=== PATIENT | male | born 1940 | race Caucasian/White ===

== ENCOUNTER → 2019-04-11 13:51 | Outpatient (BNVA) | payer MEDICARE, OTHER, SELFPAY | PROVIDERS: Family Provider Family Medicine; PCP Family Medicine; Referring Provider Family Medicine; Visit Provider Otolaryngology | DX: H90.A32 Mixed conductive and sensorineural hearing loss, unilateral, left ear with restricted hearing on the contralateral side (principal); H65.02 Acute serous otitis media, left ear; H93.19 Tinnitus, unspecified ear; H91.91 Unspecified hearing loss, right ear | CPT/HCPCS: 96372; 99214; J3301 ==

== ENCOUNTER → 2019-05-03 15:04 | Outpatient (BNVA) | payer MEDICARE, OTHER, SELFPAY | PROVIDERS: Family Provider Family Medicine; PCP Family Medicine; Visit Provider Otolaryngology | DX: H91.92 Unspecified hearing loss, left ear (principal); H65.02 Acute serous otitis media, left ear | CPT/HCPCS: 99213; 99214 ==

== ENCOUNTER 2019-10-25 09:21 | Day surgery (SDC) | payer MEDICARE, OTHER, SELFPAY ==
--- NOTE | 2019-10-24 09:07 | ECG_ITS ---
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 Measurements Intervals [place] Rate: 61 P: 69 NC: 190 QRS: 26 QRSD: 133 T: 55 QT: 391 QTc: 396 Interpretive Statements SINUS RHYTHM RIGHT BUNDLE BRANCH BLOCK Compared to ECG 11/11/2017 09:00:33 Indeterminate axis no longer present Electronically Signed On 10-24-2019 12:46:58 CDT by Anabella Chavez M.D. [id number]
--- NOTE | 2019-10-24 09:25 | ANES.PREANE2 ---
Pre-Anesthetic Assessment Pre-Anesthetic Assessment: Height/Weight: Height 1.75 m Weight 65.771 kg Proposed Procedure: Operation Date: 10/25/19 10:15 Proposed Procedures p Laparoscopic Inguinal Hernia Repair w/Mesh poss open 24657 K40.90(Right) - Juan Strauss MD Social: Social History: Tobacco (quit) and No alcohol Exam: Pre-Anes Outpt Exam: alert, oriented x 3, clear to auscultation bilaterally and regular rate & rhythm Airway: Submandibular: WNL Cervical ROM: WNL MP: 2 Dentition: Full (dentures) History/ROS: No significant history except as noted and No significant complaints Anesthetic Plan: ASA status: 2 Anesthesia: Anesthesia Evaluation and General Risk of > 500 ml blood loss (7ml/kg in children): No PFSH Anesthesia PFSH: Medical History (Updated 10/24/19 @ 09:25 by Jun Chakraborty MD) Right inguinal hernia Surgical History H/O colonoscopy 5-6 yrs ago History of brain surgery History of cholecystectomy History of removal of Port-a-Cath History of surgery on upper extremity History of transurethral resection of prostate Family History Other Cancer Diabetes Denies family history of Anesthesia complication Bleeding disorder Social History Smoking and tobacco status: former smoker Alcohol intake: never Household members: spouse Marital status: Current occupational status: retired History of recent travel: No Data Anesthesia Cardiac Studies: No Data to Display
[2019-10-25] VITALS (13 sets, daily range): BP systolic 149–195; BP diastolic 79–101; PULSE 52–94; RESP 12–20; TEMP 36.3–36.5; O2SAT 93–99
--- NOTE | 2019-10-25 10:06 | W.PM.OPSUD ---
Surgery/Procedure H&P Update DATE OF PROCEDURE: October 25, 2019 DATE H&P PERFORMED: 10/17/19 H&P UPDATE INFORMATION: I have reviewed H&P completed within last 30 days, I have examined patient prior to procedure and No changes to prior documentation PREOP DIAGNOSIS: Right inguinal hernia PLANNED PROCEDURE: Operation Date: 10/25/19 10:55 Proposed Procedures p Laparoscopic Inguinal Hernia Repair w/Mesh poss open 44938 K40.90(Right) - Juan Strauss MD
[2019-10-25] MEDS: sodium chloride 0.9% 1,000 ML 30 ML IV (10:12)
--- NOTE | 2019-10-25 10:47 | P.ANESUD_ITS ---
Pre-Anesthetic Update Pre-Anesthetic Assessment: Date of Surgery/Procedure: 10/25/19 Preop Mindy gnosis: Right inguinal hernia Proposed Procedure: Operation Date: 10/25/19 10:55 Proposed Procedures p Laparoscopic Inguinal Hernia Repair w/Mesh poss open 20787 K40.90(Right) - Juan Strauss MD Last Intake: Intake Last Liquid Date 10/24/19 Last Liquid Time 18:30 Last Solid Date 10/24/19 Last Solid Time 18:00 Vitals: Temperature 97.7 F 10/25/19 10:05 Temperature Source Temporal Artery S can 10/25/19 10:05 Pulse Rate 66 10/25/19 10:05 Respiratory Rate 18 10/25/19 10:05 Blood Pressure 166/90 10/25/19 10:05 Blood Pressure Meryl n 115 10/25/19 10:05 Pulse Oximetry 99 10/25/19 10:05 Oxygen Delivery Me thod 10/25/19 10:05 Cardiac Studies: No Data to Display
[2019-10-25] MEDS: fentaNYL 50 mcg/mL INJ 2mL IVP (12:11)
[2019-10-25] MEDS: diphenhydrAMINE 50 mg/mL SDV 1mL 25 MG IVP (13:12)
[2019-10-25] MEDS: dexamethasone 4 mg/mL INJ IVP (13:50)
--- NOTE | 2019-10-25 18:47 | PM.OP ---
Operative Report Date of procedure: October 25, 2019 Pre-op Diagnosis: Right inguinal hernia Post-op Diagnosis: Reducible indirect right inguinal hernia Procedure Done: Laparoscopic total extraperitoneal repair of right inguinal hernia with Bard 3D mesh Pathology: none sent Surgeon: Juan Strauss Anesthesia: General Condition: stable Disposition: PACU Procedure: The patient was taken to the operating room. After IV antibiotic was administered, the abdomen was prepped and draped in a sterile manner. Using a 15 blade, a 1.0 cm transverse incision was made infraumbilically on the right side. Subcutaneous tissue was divided using electrocautery and the anterior rectus sheath divided using an 11 blade. The rectus muscle was retracted laterally and the extraperitoneal space identified. A 11 mm port was placed and 12 mm of pneumoperitoneum was created. A 10 mm 30? scope was introduced and the retrorectus space was opened using the camera up to the pubic symphysis and 5 mm ports were placed in the midline, one 2-fingerbreadths above the pubic symphysis and the other midway between these two ports under direct visualization. Blunt dissection was carried out to open up the tissue in the midline and to the pubic symphysis, which was identified. The dissection was then carried laterally where the iliopubic tract was identified. There was no femoral, obturator or direct hernia noted. The inferior epigastric artery was identified and dissection was carried posterior to it and laterally, the space was opened up to the level of the umbilicus superior to the anterior superior iliac spine. I then proceeded to dissect out the spermatic cord and the indirect hernial sac was reduced . 15 x 10cm Ultrapro mesh was rolled and introduced through the 10 mm port and then rolled laterally and apposed well against the abdominal wall to cover the myopectineal orifice completely. 10 Cc of 0.5% Marcaine was infiltrated into the preperitoneal space. The extraperitoneal space was desufflated under direct visualization to ensure no slippage of hernial sac under the mesh. All ports were removed, the anterior rectus fascia at the infraumbilical port closed using figure of eight 0 Vicryl sutures, subcutaneous tissue approximated using 3-0 Vicryl sutures and skin at all three port sites were closed using running subcuticular 4-0 Monocryl sutures and Dermabond. 10 mL of 0.5% Marcaine was infiltrated at the port sites. The patient was stable throughout the procedure. My laparoscopic inguinal hernia
== END 2019-10-25 14:35 | disposition home or self-care (01) ==
PROVIDERS: PCP Family Medicine; Visit Provider Surgery
PROC: (CPT 49650; principal; 2019-10-25 10:55)
DX: K40.90 Unilateral inguinal hernia, without obstruction or gangrene, not specified as recurrent (principal); Z87.891 Personal history of nicotine dependence; N40.0 Benign prostatic hyperplasia without lower urinary tract symptoms
CPT/HCPCS: 49650; 12345; 93005; 94640; 96374; 96375; C1781; J0690; J1100; J1200; J2405; J2704; J2710; J3010; J3490; J7030; J7611

== ENCOUNTER → 2020-01-11 16:08 | Outpatient (BNVA) | payer MEDICARE, OTHER, SELFPAY | PROVIDERS: PCP Family Medicine; Visit Provider Family Medicine | DX: Z11.59 Encounter for screening for other viral diseases (principal) | CPT/HCPCS: 87635 ==

== ENCOUNTER 2020-01-12 08:19 | Emergency (ER) | payer MEDICARE, OTHER, SELFPAY ==
[2020-01-12 08:28] VITALS: BP 182/100; PULSE 85; RESP 18; TEMP 36.9; O2SAT 98; BMI 22.1
--- NOTE | 2020-01-12 08:35 | XR_ITS ---
WS: [id number] Portable AP upright chest, 01/12/2020 Clinical Data: Cough Comparison: PA and lateral chest, 07/18/2014. Findings: There is patchy opacity overlying the surface of the left diaphragm and at the right costop hrenic angle. These findings could represent early pneumonia and/or atelectasis. No nodules, masses o r effusions are seen. The heart is normal. The pulmonary vascularity is not increased. No pneumothora x is seen. The diaphragms are flattened. XR/XR chest 1V portable [id number] Impression: 1. Minimal patchy opacity overlying left diaphragm and right costophrenic angle which could represent atelectasis and/or pneumonia. Recommend repeat chest x-r ay in one to 2 days. 2. Hyperinflation.
--- NOTE | 2020-01-12 08:52 | W.ED.SOB ---
HPI - SOB/Dyspnea General: Chief Complaint: Shortness of Breath/Dyspnea Stated Complaint: SOB, loss of taste/smell Source: patient Mode of arrival: ambulatory Limitations: no limitations History of Present Illness: HPI Narrative: Tushar is a very nice 79-year-old male who comes in complaining of loss of sense of taste and loss sense of smell. He has nonproductive cough. The patient is believed to have had the COVID-19 virus and he had a test performed but the results are unknown. Patient states he has decreased appetite and weakness. He states overall though he feels like he is getting better and his symptoms are improving. His is sick with similar symptoms although he states that she is more ill than him. He denies any chronic medical problems and definitely no chronic medical problems that necessitate immunosuppressive medications or steroids. Patient states overall he just feels like he is no appetite has weakness but this is getting better. Associated symptoms: Reports fever(s); Deny abdominal pain, chest congestion, chest pain, diaphoresis, dizziness, extremity pain, hemoptysis, lightheadedness, orthopnea, palpitations, syncope or vomiting Review of Systems Const: Reports: fever(s), chills, fatigue and malaise; Denies: diaphoresis Eyes: Denies: change in vision, blurry vision, photophobia, eye discomfort, eye discharge, eye redness or yellow eyes ENMT: Denies: throat pain, odynophagia, hoarseness, swelling of lips/tongue, ear or mastoid pain, ear discharge, change in hearing or nasal discharge Card: Denies: chest pain, palpitations, irregular heart rhythm, edema, lightheadedness, syncope, pre-syncope, dyspnea on exertion or orthopnea Resp: Reports: non-productive cough; Denies: dyspnea, productive cough, wheezing, hemoptysis or chest congestion GI: Denies: abdominal pain, vomiting, hematemesis, coffee ground emesis, heartburn, diarrhea, constipation, GI cramping, hematochezia or melena : Denies: flank pain, dysuria, urinary frequency, urinary urgency or hematuria Musc: Denies: neck pain, back pain, extremity pain, extremity swelling, joint pain, joint swelling, joint redness, joint warmth or joint stiffness Skin/Breast: Denies: rash, pruritus, erythema, skin pain or skin tenderness Neuro: Denies: headache(s), numbness in extremities, weakness in extremities, sensory changes, lack of coordination, difficulty walking, dizziness, vertigo, confusion, Slurred speech present or seizure-like activity José/Lymph: Denies: easy bruising, easy bleeding, petechiae, purpura or enlarged lymph nodes All/Imm: Denies: urticaria, throat swelling, tongue swelling, facial swelling or acute wheezing PFSH ED PFSH: Medical History Right inguinal hernia Surgical History H/O colonoscopy 5-6 yrs ago History of brain surgery History of cholecystectomy History of removal of Port-a-Cath History of surgery on upper extremity History of transurethral resection of prostate Status post right inguinal hernia repair (10/25/19) Family History Other Cancer Diabetes Denies family history of Anesthesia complication Bleeding disorder Social History Smoking and tobacco status: former smoker Alcohol intake: never Household members: spouse Marital status: Current occupational status: retired History of recent travel: No Physical Exam Const: COMMON NORMALS: no acute distress, patient oriented x3, no limitations and alert GENERAL APPEARANCE: cooperative HENMT: COMMON NORMALS: normocephalic, atraumatic, external ears normal, EAC's normal and Normal external nose present HEAD & SCALP: normal to inspection, normocephalic and atraumatic FACE & SINUS: normal facial exam and face symmetric NOSE: Normal external nose present and Normal nares present EXTERNAL EAR: Yes external ears normal EXTERNAL AUDITORY CANAL: EAC's normal MOUTH: Normal oral and palatal mucosa present, lip normal and tongue normal Eye: COMMON NORMALS: Equal, round and reactive pupils present and conjunctivae normal GENERAL EYE: appearance normal, both eyes and all related structures ALIGNMENT: Yes alignment normal PERIORBITAL: periorbital findings normal EYELID: eyelids normal CONJUNCTIVA: Yes conjunctivae normal SCLERA: sclerae normal PUPIL: Yes Equal, round and reactive pupils present Neck/C-Spine: COMMON NORMALS: full ROM, no lymphadenopathy, supple, no meningeal signs and no JVD GENERAL: Yes normal visual inspection and Yes trachea midline Chest: COMMONS NORMALS: normal inspection of the chest and normal palpation of entire chest wall Resp: COMMON NORMALS: normal respiratory effort, No retractions, No use of accessory muscles and clear to auscultation bilaterally EFFORT & INSPECTION: Yes able to speak in complete sentences and Yes symmetric chest movement AUSCULTATION: clear to auscultation bilaterally, no crackles, no rales, no rhonchi and no wheezes Cardio: COMMON NORMALS: no JVD, regular rate, regular rhythm, S1 normal heart sound present and S2 normal heart sound present RATE: regular rate RHYTHM: regular rhythm HEART SOUNDS: S1 normal heart sound present, S2 normal heart sound present, no click, no gallops, no murmurs and no rubs GI: COMMON NORMALS: Soft to palpation and No hepatosplenomegaly present PALPATION: Yes Soft to palpation, No Tenderness to palpation present (GI), No Guarding due to palpation present (GI), No Rigid due to palpation, Yes No hepatosplenomegaly present, No Hernia present, No Palpable mass present and No Pulsatile mass present : COMMON NORMALS: Yes no CVA tenderness BLADDER/KIDNEY EXAM: Yes no CVA tenderness Back/Pelvis: COMMON NORMALS: no CVA tenderness, thoracic and lumbar spine normal to inspection, no thoracic nor lumbar tenderness and thoraco-lumbar ROM normal Extremity: COMMON NORMALS: normal to inspection, full ROM, capillary refill normal, no joint enlargement, no clubbing, cyanosis or edema and no calf tenderness Neuro: COMMON NORMALS: patient oriented x3, CN's II-XII intact bilaterally, moves all extremities, no focal motor deficits and no sensory deficits noted SENSORIUM/ORIENTATION: Yes alert MENINGEAL SIGNS: Yes no meningeal signs SPEECH: speech normal Psych: COMMON NORMALS: mental status grossly normal, Normal thought process present, cooperative, normal affect, speech normal and activity/motor behavior normal SPEECH: Yes normal speech THOUGHT PROCESS: Normal thought process present Skin: COMMON NORMALS: no rashes or lesions noted, turgor normal, no jaundice, no petechiae and no mottling GENERAL SKIN EXAM: no rashes or lesions noted and turgor normal Course Vital Signs: Vital signs: Vital Signs Temperature 98.4 F 01/12/20 08:28 Pulse Rate 77 01/12/20 10:22 Respiratory Rate 20 H 01/12/20 10:22 Blood Pressure 165/90 01/12/20 10:22 Pulse Oximetry 99 01/12/20 10:22 MDM - SOB/Dyspnea MDM Narrative: Medical decision making narrative: Patient is feeling much better and is ready for discharge. He is not hypoxic but on chest x-ray he does appear to have a secondary bacterial pneumonia. His Covid test is negative here on the rapid which would coincide with a completed an infection. Patient is very asymptomatic and primarily he came in today because he is more concerned about his . She does test Covid positive so I do believe Mr. Ortega is likely recovering from this infection. Lab Data: Labs: Lab Results 01/12/20 01/12/20 01/12/20 Range/Units 09:00 09:00 09:00 WBC 3.4 L (4.0-10.0) 10^3/ uL RBC 5.23 (4.1-5.3) 10^6/u L Hgb 14.9 (11.7-16.6) g/dL Hct 44.9 (42.0-52.0) % MCV 85.9 (80-94) fL MCH 28.5 (28.0-34.0) pg MCHC 33.2 (30.0-36.0) g/dL RDW 13.5 (12.1-15.1) % Plt Count 403 H (130-400) 10^3/c mm MPV 9.9 (7.4-10.4) fL Neut % (Auto) 56.7 % Lymph % (Auto) 32.5 % [place] % (Auto) 9.9 % Eos % (Auto) 0.6 % Baso % (Auto) 0.0 % Neut # (Auto) 1.94 (1.8-7.7) 10^3/u L Lymph # (Auto) 1.1 (0.8-4.8) 10^3/u L [place] # (Auto) 0.3 (0.2-0.9) 10^3/u L Eos # (Auto) 0.0 (0.0-0.8) 10^3/u L Baso # (Auto) 0.0 (0.0-0.1) 10^3/u L Nucleated RBC % (a uto) 0 % Nucleated RBCs # 0.0 /100WBC Fibrinogen 587 H (174-498) mg/dL Sodium 138 (136-145) mmol/L Potassium 3.8 (3.5-5.1) mmol/L Chloride 99 (98-107) mmol/L Carbon Dioxide 27 (22-29) mmol/L Anion Gap 15.8 (5-19) BUN 15 (8-23) mg/dL Creatinine 1.0 (0.7-1.2) mg/dL GFR Calculation Not Reportable Glucose 111 (65-115) mg/dL Calculated Osmolal ity 288 (285-295) mOsm/k g Lactic Acid (0.5-2.2) mmol/L Calcium 9.7 (8.5-10.5) mg/dL Magnesium 2.1 (1.7-2.3) mg/dL Total Bilirubin 0.9 (0.15-1.2) mg/dL AST 29 (0-40) U/L ALT 39 (0-41) U/L Alkaline Phosphata se 68 (40-130) IU/L Lactate Dehydrogen ase 230 H (135-225) U/L C-Reactive Protein 9.0 H (0.0-4.9) mg/L Total Protein 7.6 (6.6-8.7) g/dL Albumin 4.3 (3.5-5.2) g/dL Globulin 3.3 (1.3-4.6) g/dL Procalcitonin 0.04 (0-0.5) ng/mL Influenza Type A A g (Negative) Influenza Type B A g (Negative) SARS-CoV-2 Ag (Rap id) (Negative) 01/12/20 01/12/20 01/12/20 Range/Units 09:00 09:00 09:00 WBC (4.0-10.0) 10^3/ uL RBC (4.1-5.3) 10^6/u L Hgb (11.7-16.6) g/dL Hct (42.0-52.0) % MCV (80-94) fL MCH (28.0-34.0) pg MCHC (30.0-36.0) g/dL RDW (12.1-15.1) % Plt Count (130-400) 10^3/c mm MPV (7.4-10.4) fL Neut % (Auto) % Lymph % (Auto) % [place] % (Auto) % Eos % (Auto) % Baso % (Auto) % Neut # (Auto) (1.8-7.7) 10^3/u L Lymph # (Auto) (0.8-4.8) 10^3/u L [place] # (Auto) (0.2-0.9) 10^3/u L Eos # (Auto) (0.0-0.8) 10^3/u L Baso # (Auto) (0.0-0.1) 10^3/u L Nucleated RBC % (a uto) % Nucleated RBCs # /100WBC Fibrinogen (174-498) mg/dL Sodium (136-145) mmol/L Potassium (3.5-5.1) mmol/L Chloride (98-107) mmol/L Carbon Dioxide (22-29) mmol/L Anion Gap (5-19) BUN (8-23) mg/dL Creatinine (0.7-1.2) mg/dL GFR Calculation Glucose (65-115) mg/dL Calculated Osmolal ity (285-295) mOsm/k g Lactic Acid 1.4 (0.5-2.2) mmol/L Calcium (8.5-10.5) mg/dL Magnesium (1.7-2.3) mg/dL Total Bilirubin (0.15-1.2) mg/dL AST (0-40) U/L ALT (0-41) U/L Alkaline Phosphata se (40-130) IU/L Lactate Dehydrogen ase (135-225) U/L C-Reactive Protein (0.0-4.9) mg/L Total Protein (6.6-8.7) g/dL Albumin (3.5-5.2) g/dL Globulin (1.3-4.6) g/dL Procalcitonin (0-0.5) ng/mL Influenza Type A A g Negative (Negative) Influenza Type B A g Negative (Negative) SARS-CoV-2 Ag (Rap id) Negative (Negative) Imaging Data^: CXR: Attestation: I personally reviewed and interpreted this imaging study as follows: My impression: Possible left lower lobe infiltrate. Discharge Plan Discharge Patient Disposition: Home Clinical Impression: Pneumonia Qualifiers: Pneumonia type: due to unspecified organism Laterality: left Lung location: lower lobe of lung Qualified Code(s): J18.9 - Pneumonia, unspecified organism Condition: Stable Prescriptions: New Zithromax Z-Sebas 250 mg tablet See Rx Instructions .ROUTE .COMPLEX Qty: 6 RF: 0 cefdinir 300 mg capsule 300 mg PO Q12H 10 Days Qty: 20 RF: 0 No Action Zofran 4 mg tablet 4 mg PO Q6H PRN (Reason: nausea and vomiting) Qty: 20 RF: 0 Colace 100 mg capsule 100 mg PO BID Qty: 30 RF: 0 Discharge Orders: Discharge Order (Routine); Ordered 01/12/20 Ordered By: Catherine Cardona Referrals: Garfield Cordon MD [Primary Care Provider] - 1-3 days Discharge Diet: Advance as tolerated Discharge Activity: Increase activity as tolerated Patient Instructions: Bacterial Pneumonia (ED) Activity Restrictions/Additional Instructions: Please return to the ER immediately for any of the signs or symptoms listed on your discharge instruction sheets, worsening/changing of your symptoms, you are not getting better as quickly as expected, or for ANY other cause or concerns. Return to the ER for increased weakness, uncontrolled fever, vomiting, or for any other cause for concern. 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
[2020-01-12 09:21] LABS: Eosinophils % 0.6 %; Hematocrit 44.9 % (42.0-52.0); Hemoglobin 14.9 g/dL (11.7-16.6); Lymphocytes # 1.1 10^3/uL (0.8-4.8); Lymphocytes % 32.5 %; Mean Corpuscular HGB Conc 33.2 g/dL (30.0-36.0); Mean Corpuscular Hemoglobin 28.5 pg (28.0-34.0); Mean Corpuscular Volume 85.9 fL (80-94); Mean Platelet Volume 9.9 fL (7.4-10.4); Monocytes # 0.3 10^3/uL (0.2-0.9); Monocytes % 9.9 %; Neutrophils # 1.94 10^3/uL (1.8-7.7); Neutrophils % 56.7 %; Nucleated Red Blood Cells % 0 %; Platelet Count 403 10^3/cmm (130-400); Red Blood Count 5.23 10^6/uL (4.1-5.3); Red Cell Distribution Width 13.5 % (12.1-15.1); White Blood Count 3.4 10^3/uL (4.0-10.0)
[2020-01-12] MEDS: azithromycin 250 mg Tablet 500 MG PO (09:21)
[2020-01-12] MEDS: cefTRIAXone 1,000 MG in sodium chloride 0.9% (plus) 50 ML 100 MG IV (09:21)
[2020-01-12 09:34] LABS: Fibrinogen 587 mg/dL (174-498)
[2020-01-12 09:35] LABS: Lactic Sepsis W/Reflex 1.4 mmol/L (0.5-2.2)
[2020-01-12 09:40] VITALS: BP 158/101; PULSE 72; RESP 18; O2SAT 99
[2020-01-12 09:40] LABS: SARS Covid-2 Antigen Negative (Negative)
[2020-01-12 09:43] LABS: Influenza A by IFA Negative (Negative); Influenza B by IFA Negative (Negative)
[2020-01-12 09:45] LABS: Procalcitonin 0.04 ng/mL (0-0.5)
[2020-01-12 09:56] LABS: Alanine Aminotransferase 39 U/L (0-41); Albumin Level 4.3 g/dL (3.5-5.2); Alkaline Phosphatase 68 IU/L (40-130); Anion Gap 15.8 (5-19); Aspartate Amino Transferase 29 U/L (0-40); Blood Urea Nitrogen 15 mg/dL (8-23); Calcium 9.7 mg/dL (8.5-10.5); Carbon Dioxide 27 mmol/L (22-29); Chloride 99 mmol/L (98-107); Globulin 3.3 g/dL (1.3-4.6); Glucose 111 mg/dL (65-115); Lactate Dehydrogenase 230 U/L (135-225); Magnesium 2.1 mg/dL (1.7-2.3); Osmolality Calculated 288 mOsm/kg (285-295); Potassium 3.8 mmol/L (3.5-5.1); Sodium 138 mmol/L (136-145); Total Bilirubin 0.9 mg/dL (0.15-1.2); Total Protein 7.6 g/dL (6.6-8.7)
[2020-01-12 10:22] VITALS: BP 165/90; PULSE 77; RESP 20; O2SAT 99
== END 2020-01-12 10:30 | disposition home or self-care (01) ==
PROVIDERS: Emergency Provider Emergency Medicine; PCP Family Medicine
DX: J18.9 Pneumonia, unspecified organism (principal); Z87.891 Personal history of nicotine dependence
CPT/HCPCS: 12345; 71045; 80053; 83605; 83615; 83735; 84145; 85025; 85384; 86140; 87040; 87426; 87804; 96365; 99283; 99284; J0696; Q0144

== ENCOUNTER 2020-02-29 13:38 | Outpatient (CLI) | payer MEDICARE, OTHER, SELFPAY ==
--- NOTE | 2020-02-29 13:45 | CT_ITS ---
WS: [id number] CT HEAD TECHNIQUE: Noncontrast and contrast-enhanced CT of the head. CLINICAL INFORMATION: HISTORY OF HEAD INJURY, HEADACHE ATYPICAL COMPARISON: 09 08,011 DLP: 1984.[address] scans at [facility] use at least one of these dose optimization techniques: automat ed exposure control; mA and/or kV adjustment per patient size (includes targeted exams where dose is matched to clinical indication); or iterative reconstruction. FINDINGS: No evidence of intracranial hemorrhage or mass effect.Mild small vessel changes. Moderate parenchymal volume loss. No abnormal intracranial enhancement. Prior postoperative changes right frontoparietal temporal craniotomy. Left frontal parietal nikolas holes. Mastoid air cells and paranasal sinuses are we ll aerated. CT/CT head wo/w con [id number] IMPRESSION: 1. Mild small vessel changes with moderate parenchymal volume loss. 2. No abnormal intercranial enhancement. 3. Prior postoperative calvarial changes described above. 4. No acute intracranial findings.
[2020-02-29 14:07] LABS: Blood Urea Nitrogen 16 mg/dL (8-23)
[2020-02-29] MEDS: iohexol 300 mg/mL 100 mL Btl IV (14:17)
== END 2020-02-29 13:39 | disposition home or self-care (01) ==
LOC: RADWPI 13:45
PROVIDERS: PCP Family Medicine; Visit Provider Family Medicine
DX: Z87.828 Personal history of other (healed) physical injury and trauma (principal); R51.9 Headache, unspecified
CPT/HCPCS: 70470; 82565; 84520; Q9967

== ENCOUNTER → 2023-02-18 12:10 | Outpatient (BNVA) | payer MEDICARE, OTHER, SELFPAY | PROVIDERS: PCP Family Medicine; Visit Provider Clinical Nurse Specialist Adult Health | DX: M25.561 Pain in right knee (principal) | CPT/HCPCS: 80053; 85025; 85651; 86140 ==

== ENCOUNTER → 2023-09-29 13:30 | Outpatient (CLI) | payer MEDICARE, OTHER, SELFPAY ==
--- NOTE | 2023-09-29 13:45 | USCV_ITS ---
Jordan Tushar Age: 83 Gender: M : 1940 Exam Date: 09/29/2023 13:37 Ordering Phys: Garfield Cordon MD Technologist: [place] [facility] [place]: Palp area/possible aneursym Risk Factors: Previous Vascular Surgery: Right BP: / Left BP: / RIGHT LEFT PSV PSV (cm/s) (cm/s) Waveform Waveform Axillary 89.0 Radial Proximal 102.0 Radial at Wrist 89.0 Ulnar Proximal 71.0 Ulnar at Wrist 76.0 FINDINGS no anuersym Patent axillary, brachial and ulnar arteries on the left side Normal Doppler velocities and near normal waveforms CONCLUSIONS 1. No evidence of ny arterial obstruction on the left upper extremity, based on the above findings 2. No evidence of 1 aneurysms in the above-mentioned arteries Dr Palmira Armendariz MD [facility] (Electronically Signed) Final Date: 29 September 2023 19:37 S
== END | disposition home or self-care (01) ==
LOC: RAD 13:29
PROVIDERS: PCP Family Medicine; Visit Provider Family Medicine
DX: I72.9 Aneurysm of unspecified site (principal)
CPT/HCPCS: 93931

== ENCOUNTER → 2024-06-14 11:02 | Outpatient (BNVA) | payer MEDICARE, OTHER, SELFPAY | PROVIDERS: PCP Family Medicine; Visit Provider Family Medicine | DX: R60.9 Edema, unspecified (principal); M79.89 Other specified soft tissue disorders | CPT/HCPCS: 80053; 83880; 85025; 85379 ==

== ENCOUNTER 2024-08-29 18:39 | Emergency (ER) | payer OTHER, MEDICARE, SELFPAY ==
[2024-08-29 18:46] VITALS: BP 155/71; PULSE 98; RESP 17; TEMP 36.3; O2SAT 98; BMI 21.1
[2024-08-29 19:05] VITALS: BP 141/68; PULSE 91; RESP 14; O2SAT 99
--- NOTE | 2024-08-29 19:11 | CTR_ITS ---
PROCEDURE INFORMATION: Exam: CT Abdomen And Pelvis With Contrast Exam date and time: 08/29/2024 8:03 PM Age: 84 years old Clinical indication: Abdominal pain; Generalized; Prior surgery; Surgery date: 6+ months; Surgery type: Gb; Additional info: Abd pain, n/v TECHNIQUE: Imaging protocol: Computed tomography of the abdomen and pelvis with contrast. Radiation optimization: All CT scans at this facility use at least one of these dose optimization techniques: automated exposure control; mA and/or kV adjustment per patient size (includes targeted exams where dose is matched to clinical indication); or iterative reconstruction. Contrast material: OMNIPAQUE 350; Contrast volume: 100 ml; Contrast route: INTRAVENOUS (IV); COMPARISON: CR XR chest 1V portable [id number] 01/12/2020 8:38 AM RADIATION DOSE METRICS: Total DLP (mGy-cm): 371.53 FINDINGS: Lungs: Lung bases are unremarkable. 5.2 mm pleural-based right lower lobe nodule. Liver: The liver is unremarkable. Gallbladder and biliary ducts: Post cholecystectomy. Pancreas: Pancreas is unremarkable. No ductal dilation or peripancreatic inflammation. Spleen: The spleen is unremarkable. Adrenal glands: Adrenal glands are unremarkable. Kidneys and ureters: Bilateral bowb-bw-pmprxvsz hydronephrosis versus parapelvic cysts. There is thickening of the proximal right ureter suggesting an ascending infection. Stomach and bowel: Stomach is not fully distended. Small and large bowel are normal in caliber without evidence of obstruction. Multiple prominent fluid-filled loops of small bowel. Air-fluid levels are also present in the colon. Appendix: No evidence of appendicitis. Intraperitoneal space: No free intraperitoneal air. No significant fluid collection. Vasculature: Portal vein is patent. Lymph nodes: No pathologically enlarged lymph nodes (by short axis size criteria). Urinary bladder: Bladder is distended with no focal wall thickening. Reproductive: Visualized portions of the male reproductive tract are unremarkable for patient's age, though routine CT is limited in this regard. Bones/joints: No acute osseous abnormality. There is degenerative disease of the spine. Levoconvex scoliosis of the lumbar spine Soft tissues: Bilateral fat containing inguinal hernia. CT/CT abdomen pelvis w con* [id number] IMPRESSION: 1. Enterocolitis 2. Ascending right UTI, recommend urinalysis. 3. 5.2 mm pleural-based right lower lobe nodule. For patients at low risk (minimal or absent history of smoking and of other known risk factors), no routine follow-up is indicated. For patients at high risk (history of smoking or of other known risk factors), consider optional CT Chest at 12 months. (Reference: Altagracia) COMMENTS: Consistent with the [employer]'s Incidental Findings Committee white paper (J Am Lito Radiol 2018): Any incidental renal lesion less than 1 cm or classified as too small to characterize, or any incidental cystic renal lesion characterized as simple-appearing, is likely benign. No follow-up imaging is recommended for these lesions per consensus recommendations based on imaging criteria. REFERENCES: Altagracia Loredo, et al. Guidelines for Management of Incidental Pulmonary Nodules Detected on CT Images: From the Fleischner Society 2017. Radiology. 2017;284(1):228-243.
[2024-08-29 19:30] LABS: Basophils % 0.1 %; Hematocrit 44.6 % (37-53); Lymphocytes # 1.3 10^3/uL (0.8-4.8); Lymphocytes % 13.7 %; Mean Corpuscular HGB Conc 33.4 g/dL (30-55); Mean Corpuscular Volume 83.8 fl (82-101); Mean Platelet Volume 9.6 fL (7.4-10.4); Monocytes # 0.5 10^3/uL (0.2-0.9); Monocytes % 5.9 %; Neutrophils # 7.38 10^3/uL (1.8-7.7); Nucleated Red Blood Cells % 0 %; Platelet Count 326 10^3/cmm (157-399); Red Blood Count 5.32 10^6/uL (3.85-5.65); Red Cell Distribution Width 13.6 % (12.1-15.1); White Blood Count 9.22 10^3/uL (3.29-11.43)
[2024-08-29] MEDS: ondansetron 2 mg/ML SDV 2 mL 4 MG IVP (19:30)
[2024-08-29] MEDS: sodium chloride 0.9% 1,000 ML 999 ML IV (19:30)
[2024-08-29 19:54] LABS: Alanine Aminotransferase 24 U/L (0-41); Albumin Level 4.9 g/dL (3.5-5.2); Alkaline Phosphatase 62 U/L (40-130); Anion Gap 19.9 (5-19); Aspartate Amino Transferase 26 U/L (0-40); Blood Urea Nitrogen 26 mg/dL (8-23); Calcium 9.7 mg/dL (8.5-10.5); Carbon Dioxide 23 mmol/L (22-29); Chloride 98 mmol/L (98-107); Creatinine Clr Calc Pharmacy 46.6129; Globulin 3.2 g/dL (1.3-4.6); Glucose 127 mg/dL (65-115); Lipase 27 U/L (13-60); Osmolality Calculated 290 mOsm/kg (285-295); Potassium 3.9 mmol/L (3.5-5.1); Sodium 137 mmol/L (136-145); Total Protein 8.1 g/dL (6.6-8.7)
[2024-08-29] MEDS: iohexol 350 mg/mL 500 mL Btl (per mL) IV (20:04)
[2024-08-29 20:49] LABS: Bilirubin Urine Negative (Negative); Blood Urine Negative (Negative); Glucose Urine UA Negative (Normal); Ketones Urine 1+ (Negative); Leukocyte Esterase Urine Negative (Negative); Nitrate Urine Negative (Negative); Protein Urine 1+ (Negative); Urine Appearance Clear (CLEAR); Urine Color Yellow (Yellow); Urobilinogen Urine 0.2 mg/dL (Negative)
[2024-08-29 20:55] LABS: Add Urine Microscopic? YES; Bacteria Urine None Seen /hpf; RBC Urine 0-2 /hpf (0-2); Squamous Epithelial Cell Urine 0-5 /hpf (0-5); WBC Urine 0-5 /hpf (0-5)
--- NOTE | 2024-08-29 20:59 | W.ED.NAVMDI ---
HPI - Nausea/Vomiting/Diarrhea General: Chief complaint: Nausea/Vomiting/Diarrhea Stated complaint: n/v/d, weakness, abd pain Time Seen by Provider: 08/29/24 19:10 History of Present Illness: Patient is a generally well-appearing 84-year-old male from home seen for abrupt onset nausea, vomiting, and abdominal pain which came on at roughly 2 AM today. He has vomited roughly 15 times since then. This is very atypical for him. He underwent cholecystectomy many years ago but retains his appendix and all other intra-abdominal organs. He describes the pain as 8 of 10, cramping, infraumbilical, and worse with palpation and better with rest. He denies diarrhea or dysuria. There are no sick contacts in the home and he has no fever or cough or other signs of illness. Related Data Home Medications ?Medication ?Instructions ?Recorded ?Confirmed nifedipine 30 mg tablet,extended 60 mg PO DAILY 06/14/24 06/14/24 release Previous Rx's ?Medication ?Instructions ?Recorded clindamycin HCl 300 mg capsule 300 mg PO Q6H 10 days #40 caps 02/18/23 hydrocodone 5 mg-acetaminophen 325 1 tab PO Q6H PRN pain 5 days #30 02/18/23 mg tablet tabs ondansetron 4 mg disintegrating 4 mg PO Q8H PRN nausea and 08/29/24 tablet vomiting 5 days #20 tabs Allergies Allergy/AdvReac Type Severity Reaction Status Date / Time Penicillins Allergy Intermediate Rash Verified 02/18/23 11:34 Sulfa (Sulfonamide Allergy Mild Nausea Verified 02/18/23 11:34 Antibiotics) [facility] ED PFSH: Medical History (Updated 08/29/24 @ 21:54 by Carlos A Vyas MD) Right inguinal hernia Surgical History Status post right inguinal hernia repair (10/25/19) History of surgery on upper extremity H/O colonoscopy 5-6 yrs ago History of cholecystectomy History of removal of Port-a-Cath History of brain surgery History of transurethral resection of prostate Family History Other Cancer Diabetes Denies family history of Anesthesia complication Bleeding disorder Social History Smoking and tobacco/nicotine status: unknown if used tobacco/nicotine Alcohol intake: never Substance/Drug Use: never Household members: spouse Marital status: Current occupational status: retired Physical Exam Const: COMMON NORMALS: no acute distress, patient oriented x3 and alert HENMT: COMMON NORMALS: normocephalic and atraumatic HEAD & SCALP: normocephalic and atraumatic Eye: COMMON NORMALS: Equal, round and reactive pupils present, EOMs intact bilaterally and no scleral icterus PUPIL: Yes Equal, round and reactive pupils present Resp: COMMON NORMALS: normal respiratory effort and No retractions Cardio: COMMON NORMALS: regular rate, regular rhythm and No murmurs present (Cardio) RATE: regular rate RHYTHM: regular rhythm GI: OTHER: Moderate tenderness to palpation just below the umbilicus in the midline. No right lower quadrant tenderness to palpation. Soft, nonperitoneal abdomen. Normal bowel sounds. Neuro: COMMON NORMALS: patient oriented x3 SENSORIUM/ORIENTATION: Yes alert Skin: COMMON NORMALS: no rashes or lesions noted GENERAL SKIN EXAM: no rashes or lesions noted Course Vital Signs: Vital signs: Vital Signs Temperature 97.4 F L 08/29/24 18:46 Pulse Rate 78 08/29/24 22:42 Respiratory Rate 16 08/29/24 22:42 Blood Pressure 139/58 08/29/24 22:42 Pulse Oximetry 99 08/29/24 22:42 Oxygen Delivery Me thod Room Air 08/29/24 19:05 MDM - Nausea/Vomiting/Diarrhea Medical Decision Making In summary, patient is a generally well-appearing 84-year-old male from home seen for abdominal pain and nausea and vomiting. Labs are unremarkable. CT scan shows what appears to be enterocolitis. There is no evidence of acute appendicitis, mass, or other emergent process warranting surgery or hospitalization. After receiving IV fluids and Zofran he feels much better and is now able to drink. We discussed that the colitis is likely viral in nature and should pass spontaneously given there is no fever or bloody stool or other suspicious findings concerning for bacterial etiology. He would like to go home and I think this is reasonable. He will be given a short course of Zofran and instructions use ibuprofen and Tylenol as needed for pain knowing that he is always welcome back in the emergency department if symptoms get worse and not better over the next few days. Lab Data 08/29/24 19:20 08/29/24 19:20 Radiology Impressions Abdomen/Pelvis CT 08/29/24 19:11 IMPRESSION: 1. Enterocolitis 2. Ascending right UTI, recommend urinalysis. 3. 5.2 mm pleural-based right lower lobe nodule. For patients at low risk (minimal or absent history of smoking and of other known risk factors), no routine follow-up is indicated. For patients at high risk (history of smoking or of other known risk factors), consider optional CT Chest at 12 months. (Reference: Altagracia) COMMENTS: Consistent with the [employer]'s Incidental Findings Committee white paper (J Am Lito Radiol 2018): Any incidental renal lesion less than 1 cm or classified as too small to characterize, or any incidental cystic renal lesion characterized as simple-appearing, is likely benign. No follow-up imaging is recommended for these lesions per consensus recommendations based on imaging criteria. REFERENCES: Altagracia Loredo, et al. Guidelines for Management of Incidental Pulmonary Nodules Detected on CT Images: From the [employer]ischner Society 2017. Radiology. 2017;284(1):228-243. Laboratory Results WBC 9.22 10^3/uL (3.29-11.43) 08/29/24 19:20 RBC 5.32 10^6/uL (3.85-5.65) 08/29/24 19:20 Hgb 14.90 g/dL (11.27-16.99) 08/29/24 19:20 Hct 44.6 % (37-53) 08/29/24 19:20 MCV 83.8 fl (82-101) 08/29/24 19:20 MCH 28.0 pg (27-33) 08/29/24 19:20 MCHC 33.4 g/dL (30-55) 08/29/24 19:20 RDW 13.6 % (12.1-15.1) 08/29/24 19:20 Plt Count 326 10^3/cmm (157-399) 08/29/24 19:20 MPV 9.6 fL (7.4-10.4) 08/29/24 19:20 Neut % (Auto) 80.0 % 08/29/24 19:20 Lymph % (Auto) 13.7 % 08/29/24 19:20 Rice % (Auto) 5.9 % 08/29/24 19:20 Eos % (Auto) 0.0 % 08/29/24 19:20 Baso % (Auto) 0.1 % 08/29/24 19:20 Neut # (Auto) 7.38 10^3/uL (1.8-7.7) 08/29/24 19:20 Lymph # (Auto) 1.3 10^3/uL (0.8-4.8) 08/29/24 19:20 Rice # (Auto) 0.5 10^3/uL (0.2-0.9) 08/29/24 19:20 Eos # (Auto) 0.0 10^3/uL (0.0-0.8) 08/29/24 19:20 Baso # (Auto) 0.0 10^3/uL (0.0-0.1) 08/29/24 19:20 Nucleated RBC % (auto) 0 % 08/29/24 19:20 Nucleated RBCs # 0.0 /100WBC 08/29/24 19:20 Sodium 137 mmol/L (136-145) 08/29/24 19:20 Potassium 3.9 mmol/L (3.5-5.1) 08/29/24 19:20 Chloride 98 mmol/L (98-107) 08/29/24 19:20 Carbon Dioxide 23 mmol/L (22-29) 08/29/24 19:20 Anion Gap 19.9 (5-19) H 08/29/24 19:20 BUN 26 mg/dL (8-23) H 08/29/24 19:20 Creatinine 1.1 mg/dL (0.7-1.2) 08/29/24 19:20 GFR Calculation Not Reportable 08/29/24 19:20 Glucose 127 mg/dL (65-115) H 08/29/24 19:20 Calculated Osmolality 290 mOsm/kg (285-295) 08/29/24 19:20 Calcium 9.7 mg/dL (8.5-10.5) 08/29/24 19:20 Total Bilirubin 1.0 mg/dL (0.15-1.2) 08/29/24 19:20 AST 26 U/L (0-40) 08/29/24 19:20 ALT 24 U/L (0-41) 08/29/24 19:20 Alkaline Phosphatase 62 U/L (40-130) 08/29/24 19:20 Total Protein 8.1 g/dL (6.6-8.7) 08/29/24 19:20 Albumin 4.9 g/dL (3.5-5.2) 08/29/24 19:20 Globulin 3.2 g/dL (1.3-4.6) 08/29/24 19:20 Lipase 27 U/L (13-60) 08/29/24 19:20 Urine Color Yellow (Yellow) 08/29/24 20:42 Urine Appearance Clear (CLEAR) 08/29/24 20: Urine pH 7.0 (5-7) 08/29/24: Ur Specific [place] 1.032 (1.005-1.030) H 08/29/24 20:42 Urine Protein 1+ (Negative) A 08/29/24: Urine Glucose (UA) Negative (Normal) 08/29/24: Urine Ketones 1+ (Negative) H 08/29/24 20:42 Urine Blood Negative (Negative) 08/29/24 20: Urine Nitrate Negative (Negative) 08/29/24: Urine Bilirubin Negative (Negative) 08/29/24: Urine Urobilinogen 0.2 mg/dL (Negative) 08/29/24 20:42 Ur Leukocyte Esterase Negative (Negative) 08/29/24 20:42 Urine RBC 0-2 /hpf (0-2) 08/29/24 20:42 Urine WBC 0-5 /hpf (0-5) 08/29/24 20:42 Ur Squamous Epith Cells 0-5 /hpf (0-5) 08/29/24 20: Amorphous Sediment Not Reportable 08/29/24 20: Urine Bacteria None seen /hpf (NONE) 08/29/24: Hyaline Casts 0.40 /lpf 08/29/24 20:42 All radiology interpretation(s) finalized by discharge Discharge Plan Discharge Patient Disposition: Home Clinical Impression: Enterocolitis Condition: Stable Prescriptions: New ondansetron 4 mg tablet,disintegrating 4 mg PO Q8H PRN (Reason: nausea and vomiting) 5 Days Qty: 20 0RF No Action nifedipine 30 mg tablet extended release 60 mg PO DAILY clindamycin HCl 300 mg capsule 300 mg PO Q6H 10 Days Qty: 40 0RF hydrocodone-acetaminophen 5-325 mg tablet 1 tab PO Q6H PRN (Reason: pain) 5 Days Qty: 30 0RF Discharge Orders: Discharge ED (Routine); Ordered 08/29/24 Ordered By: Carlos A Vyas Referrals: Garfield Cordon MD [Primary Care Provider, Family Practice] Discharge Diet: Advance as tolerated Discharge Activity: Increase activity as tolerated Patient Instructions: Colitis (ED) Activity Restrictions/Additional Instructions: It was a pleasure to meet you. 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 I am grateful for your service. Please come back if your symptoms get worse and we can reevaluate but otherwise the prescribed Zofran should keep you able to drink sufficiently to stay hydrated. Print Language: [place] Coding Level of Care Code ED Warp Bleaching Vat Tender for Miranda Santiago
[2024-08-29 21:06] LABS: Specific Gravity, Urine 1.032 (1.005-1.030)
[2024-08-29] MEDS: ondansetron hcl ODT 4 mg Tab PO (22:33)
[2024-08-29 22:42] VITALS: BP 139/58; PULSE 78; RESP 16; O2SAT 99
== END 2024-08-29 22:40 | disposition home or self-care (01) ==
PROVIDERS: Emergency Provider Student in an Organized Health Care Education/Training Program; PCP Family Medicine
DX: K52.9 Noninfective gastroenteritis and colitis, unspecified (principal)
CPT/HCPCS: 74177; 80053; 81001; 83690; 85025; 96361; 96374; 99285; J2405; J7030; Q0162